=== PATIENT | female | born 1980 | race Caucasian/White ===

== ENCOUNTER 2016-05-28 18:06 | Observation (INO) ==
[2016-05-28 18:33] LABS: Bilirubin,Urine Negative (Negative); Blood,Urine Moderate (Negative); Clarity,Urine Clear (Clear); Color,Urine Yellow (Yellow); Glucose,Urine (UA) Normal (Normal); Ketones,Urine Negative (Negative); Leukocyte Esterase,Urine Negative (Negative); Nitrite,Urine Negative (Negative); Protein,Urine Negative (Neg-Trace); Specific Gravity,Urine 1.026 (1.010-1.025); Urobilinogen,Urine Normal (Normal)
[2016-05-28 18:35] LABS: Bacteria,Urine None Seen per hpf (None-Few); Hyaline Casts,Urine None Seen per lpf (None-Few); RBC,Urine 15-30 per hpf (0-3); Squamous Epithelial Cell,Urine Many per lpf (None-Few); WBC,Urine 0-3 per hpf (0-3)
--- NOTE | 2016-05-28 18:41 | OB/GYN Progress Note ---
Date of Encounter: 05/28/16 Time of Encounter: 18:36 - Assessment and Plan (1) 21 weeks gestation of Current Visit: Yes Status: Acute admit for observation (2) AMA (advanced maternal age) multigravida 35+ Current Visit: Yes Status: Acute admit for observation Qualifiers: Trimester: second trimester Qualified Code(s): O09.522 - Supervision of elderly multigravida, second trimester (3) Vaginal discharge during in second trimester Current Visit: Yes Status: Acute vaginosis panel collected and sent to lab. Subjective - Subjective Principal diagnosis: Vaginal bleeding Interval history: Patient is 35 y/o female at 21w4d presents to labor and delivery with complaints of brown discharge followed by bright red spotting on toilet tissue after voiding about 1 hour ago. Patient denies any bleeding since. Patient has history of 40w and 42 week deliveries. Patient had a normal level II ultrasound WNL on 05/20/2016. Patient reports increase in urinary frequency, denies dysuria. Denies any vaginal itching and burning. Patient reports +FM. Blood type : A+. Antepartum ROS: vaginal bleeding, movement normal, no loss of fluid, no contractions Objective - Exam FHR: auscultation normal FHR comments: FHR 155 bpm appropriate for gestational age. Abdomen: Present: normal appearance, soft, gravid Uterus: Present: normal Cervical dilation: Closed Cervix effacement: Thick station: -3 Comments: Speculum exam: No blood noted in vagina or at cervical os. Moderate amount of white discharge noted on exam vaginosis panel collected and sent to lab. SVE: Closed/Thick and posterior. - Labs Labs: Abnormal lab results Ur Specific [place] 1.026 (1.010-1.025) H 05/28/16 18:25 Urine Blood Moderate (Negative) H 05/28/16 18:25 Urine Microscopic RBC 15-30 per hpf (0-3) H 05/28/16 18:25 Ur Squamous Epith Cells Many per lpf (None-Few) H 05/28/16 18:25
[2016-05-28 20:12] LABS: Candida DNA Not Detected (Not Detect); Gardnerella DNA Not Detected (Not Detect); Trichomonas DNA Not Detected (Not Detect)
--- NOTE | 2016-06-01 08:03 | Discharge Summary ---
Date of Encounter: 05/28/16 Time of Encounter: 20:14 - Discharge Diagnosis (1) 21 weeks gestation of Priority: Primary Status: Acute Comments: False labor (2) AMA (advanced maternal age) multigravida 35+ Priority: Secondary Status: Acute Qualifiers: Trimester: second trimester Qualified Code(s): O09.522 - Supervision of elderly multigravida, second trimester (3) Vaginal discharge during in second trimester Priority: Secondary Status: Acute - Discharge Medications Home Medications: Buspar 10 mg PO DAILY 05/28/16 [History] Colace 100 mg PO TID 05/28/16 [History] Hydroxyzine HCl 25 mg PO 2-3XD PRN 05/28/16 [History] 19 Tablet 1 tab PO DAILY 05/28/16 [History] Allergies/Adverse Reactions: Allergies No Known Allergies Allergy (Verified 11/06/15 19:10) Data Procedures and tests throughout hospitalization: Laboratory Tests 05/28/16 05/28/16 18:25 Unknown Urine Color Yellow Urine Clarity Clear Urine pH 6.0 Ur Specific [place] 1.026 H Urine Protein Negative Urine Glucose (UA) Normal Urine Ketones Negative Urine Blood Moderate H Urine Nitrite Negative Urine Bilirubin Negative Urine Urobilinogen Normal Ur Leukocyte Esterase Negative Urine Microscopic RBC 15-30 H Urine Microscopic WBC 0-3 Ur Squamous Epith Cells Many H Urine Bacteria None Seen Hyaline Casts None Seen Ur Culture Indicated? NO Amy species DNA Not Detected Gardnerella DNA Probe Not Detected Trichomonas DNA Probe Not Detected Date of admission: 05/28/16 18:06 Primary care physician: PCP NO Discharging clinician: Farida Fritz Anticipated date of discharge: 05/28/16 - Patient Status Disposition: Home, Self-Care Condition: Good - Discharge Instructions Follow Up With: NO,PCP [Primary Care Provider] - Additional Instructions: LABOR AND DELIVERY DISCHARGE INSTRUCTIONS Signs and Symptoms to be Reported to your Doctor Immediately: * Sudden gush, continuous or intermittent lead of fluid from vagina (note the time of gush and color of fluid) * Onset of bright red vaginal bleeding with or without pain (if you had a vaginal exam during this visit you may notice some dark red spotting. This is normal.) * Lower abdominal cramping or backache that is premenstrual-like feeling. * More than 6 contractions in one hour. * Burning during urination, having to urinate more frequently or pain in your mid-back. * A change in the baby's activity. This could be an increase or decrease in activity. * Severe headache which does not go away with tylenol. * Sudden swelling in the face, hands, arms and/or legs. * Upper abdominal pain - sometimes associated with heartburn or nausea and is not relieved by Maalox, Mylanta or Tums. * Dizziness or blurred vision or visual disturbances (seeing stars/lights). * Kick Counts One hour after a meal, lay down on one side in a quiet place. Count the number of tara the baby moves during an hour. If less than 6 movements, notify your physician. Diet: *Force fluids - 8-10 tall glasses of fluid per day. May include popsicles and jello. 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
== END 2016-05-28 20:25 | disposition home or self-care (01) ==
LOC: 1NENULAB
PROVIDERS: ADMIT Advanced Practice Midwife

== ENCOUNTER → 2016-06-27 22:40 | Observation (INO) ==
--- NOTE | 2016-06-27 22:18 | OB/GYN Progress Note ---
Date of Encounter: 06/27/16 Time of Encounter: 22:16 - Assessment and Plan (1) 25 weeks gestation of Current Visit: Yes Status: Acute (2) AMA (advanced maternal age) multigravida 35+ Current Visit: No Status: Chronic Qualifiers: Trimester: second trimester Qualified Code(s): O09.522 - Supervision of elderly multigravida, second trimester (3) Vaginal discharge during in second trimester Current Visit: Yes Status: Acute Not ruptured. All testing negative and vagina is dry. Patient reassured that her amniotic fluid is not leaking. She has had no further leaking since arrival. Followup as scheduled. Subjective - Subjective Principal diagnosis: leaking fluid Interval history: Patient states an hour before arrival she felt a gush of fluid. She changed her clothes and she was wet yet again. She is confident it is not urine leaking. She denies any contractions or vaginal bleeding. She reports good movements. She has a history of 2 prior term deliveries. Antepartum ROS: loss of fluid, movement normal, no vaginal bleeding, no contractions Objective - Vital Signs Vital Signs: Intake and Output 06/27/16 06/27/16 06/27/16 07:59 15:59 23:59 Other: Weight 82.5 kg Patient Weight 06/27/16 23:59 Weight 82.5 kg - Exam FHR: auscultation normal Abdomen: Present: soft, gravid. Absent: tenderness Comments: Speculum exam, vaginal dryness noted, negative pooling, negative nitrazine, negative ferning.
== END | disposition home or self-care (01) ==
LOC: 1NENULAB
PROVIDERS: ADMIT Obstetrics & Gynecology; ATTEND Obstetrics & Gynecology

== ENCOUNTER 2016-09-27 06:00 | Inpatient (IN) ==
[2016-09-27] MEDS ORDERED: Naloxone 0.4 MG/ML INJ IVP PRN ×2 (06:04→12:10)
[2016-09-27] MEDS ORDERED: Metoclopramide 10 MG/2 ML VIAL IVP PRN (06:04)
[2016-09-27] MEDS ORDERED: Famotidine 20 MG/2 ML VIAL IVP PRN (06:04)
[2016-09-27] MEDS ORDERED: miSOPROStol 100 MCG TABLET PO PRN (06:04)
[2016-09-27 06:25] LABS: Basophils # 0.1 K/mcL (0.0-0.2); Basophils % 0.3 %; Eosinophils # 0.2 K/mcL (0.0-0.6); Eosinophils % 1.3 %; Hematocrit 34.3 % (35.3-44.9); Hemoglobin 11.8 g/dL (11.5-15.4); Immature Granulocytes % 0.5 % (0-4); Lymphocytes # 2.7 K/mcL (0.6-4.6); Lymphocytes % 18.8 %; Mean Corpuscular HGB Conc 34.4 g/dL (31.6-35.5); Mean Corpuscular Hemoglobin 31.1 pg (28.0-33.3); Mean Corpuscular Volume 90.3 fL (83.0-100.0); Mean Platelet Volume 9.3 fL (9.4-12.4); Monocytes # 0.7 K/mcL (0.0-1.3); Monocytes % 4.8 %; Neutrophils # 10.8 K/mcL (1.6-8.9); Platelet Count 366 K/mcL (140-400); Red Cell Distribution Width 13.2 % (11.5-14.5); Segmented Neutrophils % 74.3 %
[2016-09-27] MEDS: Ringers Solution, Lactated 1,000 ML IVC SCH ×4 (07:56→18:57)
--- NOTE | 2016-09-27 11:02 | Anesthesia Evaluation PreOp ---
Date of Encounter: 09/27/16 Time of Encounter: 10:56 - Past History Planned Operation: MILLER Cardiac History: Denies any Significant Hx Pulmonary History: Former smoker (quit with ), Smoker (17pk/yr) STILL RUNNER History: Denies Any Significant HX Other Medical History: Denies Any Significant HX, Other ( anxiety, iron deficiency anemia) Anesthesia History: No Prior Anesthetic Complications, Past Anesthesia (cyst removal from left wrist, Tonsillectomy without complication) : Yes Alcohol Use: none Drug use: none Medications and Allergies Buspar 10 mg PO DAILY 05/28/16 [History] Colace 100 mg PO TID 05/28/16 [History] 19 Tablet 1 tab PO DAILY 05/28/16 [History] hydrOXYzine HCl [Hydroxyzine HCl] 25 mg PO 2-3XD PRN 05/28/16 [History] Ferrous Sulfate [Iron] 325 mg PO DAILY 09/27/16 [History] Allergies No Known Allergies Allergy (Verified 11/06/15 19:10) - Meds/Allergy Pre-op Review Medications Reviewed: Yes Allergies Reviewed: Yes Beta Blockers on Current Med List: No Anesthesia Results - Labs 09/27/16 06:19 Anesthesia Exam BP 120/59 P 86 R 16 T 98.0 Height: 5'6" Weight: 85kg NPO (# of Hours): 2 Pain Scale: 4 Pain Scale Used: Numeric (1 - 10) - HEENT Pupil (Motor): Pupils equal Mallampati: II Teeth: Normal Oral Opening: Less than or equal to 3 - STILL RUNNER LOC: Oriented STILL RUNNER Motor: Normal RUE, Normal LUE, Normal RLE, Normal LLE, Normal Face STILL RUNNER Sensory: Normal: RUE, LUE, RLE, LLE, Face - Cardiac Murmur: None JVD: No Carotid Bruit: No - Pulmonary Breath Sounds: bilateral Clear Respiratory Effort: Symmetrical Anesthesia Assess/Plan ASA Score: 2 Modified Kenneth Scale for Level of Consciousness: Cooperative, oriented, and tranquil Anesthetic Plan: Regional Autologous Blood: No Monitoring Plan: Standard Monitors Recovery Plan: Other
--- NOTE | 2016-09-27 11:37 | OB Labor Progress Note ---
Date of Encounter: 09/27/16 Time of Encounter: 11:35 Labor Progress Note - Subjective Subjective: Pt comfortable s/p 25mcg Cytotec with irregular uc's'. - Cervix Cervix: 3/80/-2 - Heart Tones Heart Tones: RNST - Genoa Genoa: Irregular uc's - Interventions Interventions: AROM clear - Plan Plan: Expect
[2016-09-27] MEDS ORDERED: *HR* Nalbuphine 20 MG/ML AMPUL IVP PRN (11:49)
[2016-09-27] MEDS ORDERED: Oxytocin 20 units/ LR 1000 mL 20 UNIT/1,000 ML BAG IVC SCH ×2 (12:00→22:38)
[2016-09-27] MEDS ORDERED: EPHEDrine 50 MG/ML VIAL IVP PRN (12:10)
[2016-09-27] MEDS ORDERED: Ondansetron 4 MG/2 ML VIAL IVP PRN (12:10)
[2016-09-27] MEDS ORDERED: *HR* FentaNYL (PF) 100 MCG/2 ML VIAL EP ONE (12:10)
[2016-09-27] MEDS ORDERED: Bupivacaine-MPF 0.25% 10 ML VIAL EP ONE (12:10)
[2016-09-27] MEDS ORDERED: Epidural Premix (fent/bupiv) 110 ML EP SCH (12:15)
[2016-09-27] MEDS ORDERED: *HR* FentaNYL (PF) 100 MCG/2 ML VIAL ONE (13:45)
[2016-09-27] MEDS ORDERED: Bupivacaine-MPF 0.25% 10 ML VIAL ONE (13:47)
[2016-09-27] MEDS ORDERED: Epidural Premix (fent/bupiv) 110 ML EP ONE (13:47)
--- NOTE | 2016-09-27 14:15 | OB Labor Progress Note ---
Date of Encounter: 09/27/16 Time of Encounter: 14:13 Labor Progress Note - Subjective Subjective: Uc's getting more uncomfortable with uc's on pit. - Cervix Cervix: /-1 - Heart Tones Heart Tones: RNST - Plan Plan: Expect
--- NOTE | 2016-09-27 14:39 | OB/GYN History & Physical ---
Date of Encounter: 09/27/16 Time of Encounter: 14:35 Assessment and Plan (1) 39 weeks gestation of Current visit: Yes Status: Acute Pt with intractable back pain, presents with desire for induction of labor. Will start Cytotec. (2) AMA (advanced maternal age) multigravida 35+ Current visit: No Status: Chronic Qualifiers: Trimester: third trimester Qualified Code(s): O09.523 - Supervision of elderly multigravida, third trimester History of Present Illness Chief complaint: Here for induction of labo HPI: Ms. Lewis is a 35 year old female female presen at 39 weeks EGA for induction of labor. Preg has been complicated by AMA with normal level u/s and growth scans. She has also had intractable back pain during this . Past Med Surg Social Fam HX - Past Medical History Medical history: other Psychiatric history: anxiety - Past Surgical History Surgical History: other - Social History Smoking Status: Former smoker Smokeless Tobacco Status: No Alcohol use: none Drug use: none - Family History Father Living Status: Hx Family Cardiac Disorders: Yes (htn) Hx Family Respiratory Disorders: No Hx Family Cancer: Yes Hx Family GI Disorders: No Hx Family Endocrine Disorder: Yes Hx Family Neuromuscular Disorders: No Hx Family Neurologic Disorders: No Hx Family HEENT Disorders: No Hx Family Autoimmune Disorders: No Obstetrical History - Pregnancies : 3 Para: 2 Medications and Allergies Buspar 10 mg PO DAILY 05/28/16 [History] Colace 100 mg PO TID 05/28/16 [History] 19 Tablet 1 tab PO DAILY 05/28/16 [History] hydrOXYzine HCl [Hydroxyzine HCl] 25 mg PO 2-3XD PRN 05/28/16 [History] Ferrous Sulfate [Iron] 325 mg PO DAILY 09/27/16 [History] Allergies No Known Allergies Allergy (Verified 11/06/15 19:10) Exam - Constitutional Constitutional: well developed, well nourished, no acute distress - HEENT HEENT: EOMI, PERRL - Neck Neck exam: full ROM - Lungs Respiratory exam: CTAB - Cardiovascular Cardiovascular exam: RRR - Breasts Breast: bilateral: normal - Abdomen Abdomen: Present: bowel sounds normal, gravid - Cervix Dilation: 3 Effacement: 70 Station: -2 Results Result Diagrams: 09/27/16 06:19 Abnormal lab results WBC 14.6 K/mcL (4.3-11.1) H 09/27/16 06:19 RBC 3.80 M/mcL (3.82-4.97) L 09/27/16 06:19 Hct 34.3 % (35.3-44.9) L 09/27/16 06:19 MPV 9.3 fL (9.4-12.4) L 09/27/16 06:19 Neutrophils # 10.8 K/mcL (1.6-8.9) H 09/27/16 06:19 All other labs normal. - VTE Reasons for not Prescribing Prophylaxis: Treatment not Indicated - Low risk for VTE
--- NOTE | 2016-09-27 17:27 | Anesthesia Procedures ---
Date of Encounter: 09/27/16 Time of Encounter: 16:30 Procedures: Anesthesia - Epidural/Spinal Patient ID/Chart reviewed: Yes Patient examined: Yes OB Eval: Gestational age: 39 OB Eval: : 3 OB Eval: Hx Para: 2 OB Eval: Dilated at (cm): 4 OB Eval: Contractions: Non-stressed pattern Consent Obtained: Yes Supplemental Oxygen: None/Room Air Site Prep: Aseptic Technique, Sterile prep and drape, Povidone-Iodine 1% Patient position: upright Local Anesthetic: Lidocaine 1% Amount of Local Anesthetic used: 3 Touhy Needle Gauge: 18 Touhy Needle Depth (cm): 6 Catheter Depth at Skin (cm): 14 Test Dose (1.5% Lido + Epi): Volume given (mls): 3 Test Dose Result: Negative Loading Dose: 0.25% Marcaine (mls): 10 Loading Dose: Fentanyl (mcg): 100 Loading Dose Administered: Thru Catheter Infusion Med: 0.125% Bupivacaine w/ 2 mcg/ml Fentanyl Infusion Rate (mls/hr): [address]: Tegaderm, Tape Interspace Used: L4-L5 Loss of Resistance (STEPHANI): Yes Blood: No CSF: No Paresthesia: No Procedure: MILLER placed 1st pass without any immediate noted complications. VSS throughout Vitals + FHT's: 1630 BP 98/55 P 69 1705 BP 106/56 P 77 FHT 130s
--- NOTE | 2016-09-27 20:12 | OB/GYN Procedure Note ---
Delivery - Delivery Date: 09/27/16 Provider: Buster Stevenson Intrapartum events: none Delivery induction: AROM, oxytocin Anesthesia: epidural Estimated Blood Loss: 100 - (s) A Delivery Date: 09/27/16 Delivery Time: 19:44 Presentation: vertex Position: AUBREY Gender: Male Viability: Viable Weight Gram: 2.8 kg at 1 minute: 8 at 5 mins: 9 Shoulder Dystocia: not encountered Specimens collected: cord blood Placenta: spontaneous Cord: 3 umbilical vessels - Repair Episiotomy: none Laceration Description: Superficial - Complications Delivery complications: none - Disposition Mom disposition: stable in LDR disposition: stable in LDR - Comments Comments: Pt s/p of liveborn male without complications. No significant lacerations. Spontaneous delivery of normal placenta with 3vc. Mother and infant recovered in LDR.
[2016-09-27] MEDS ORDERED: Acetaminophen 325 MG TABLET PO PRN (22:38)
[2016-09-27] MEDS ORDERED: Measles/Mumps/Rubella Vacc 0.5 ML VIAL SQ PRN (22:38)
[2016-09-27] MEDS ORDERED: Rho Immune Globulin 1,500 UNIT SYRINGE IM PRN (22:38)
[2016-09-27] MEDS: Ibuprofen 600 MG TABLET PO PRN (23:32)
[2016-09-28 08:53] LABS: Basophils # 0.1 K/mcL (0.0-0.2); Basophils % 0.3 %; Eosinophils # 0.2 K/mcL (0.0-0.6); Hematocrit 31.1 % (35.3-44.9); Hemoglobin 10.5 g/dL (11.5-15.4); Immature Granulocytes % 0.5 % (0-4); Immature Platelets 2.2 % (1.1-6.1); Lymphocytes # 2.5 K/mcL (0.6-4.6); Lymphocytes % 15.8 %; Mean Corpuscular HGB Conc 33.8 g/dL (31.6-35.5); Mean Corpuscular Volume 91.7 fL (83.0-100.0); Mean Platelet Volume 9.3 fL (9.4-12.4); Monocytes # 0.6 K/mcL (0.0-1.3); Monocytes % 4.1 %; Neutrophils # 12.2 K/mcL (1.6-8.9); Platelet Count 360 K/mcL (140-400); Red Blood Count 3.39 M/mcL (3.82-4.97); Red Cell Distribution Width 13.5 % (11.5-14.5); Segmented Neutrophils % 78.3 %
[2016-09-28] MEDS ORDERED: Prenatal Vit/FA 1 EACH TABLET PO SCH (09:00)
[2016-09-28] MEDS: Ibuprofen 600 MG TABLET PO PRN ×2 (09:05→16:37)
--- NOTE | 2016-09-28 09:48 | OB/GYN Progress Note ---
Date of Encounter: 09/28/16 Time of Encounter: 09:46 - Assessment and Plan (1) Vaginal delivery Current Visit: Yes Status: Acute stable PPD #1. Recommend ATC Motrin for back pain. Will DC in AM, may DC tonight if desires. Subjective - Subjective Interval history: Pt states bleeding has decreased, voiding, has some back pain taking po medication, Pt does not desire late discharge at this time. Patient reports: appetite normal, voiding normally, pain well controlled, ambulating normally, other (heartburn) : doing well Objective - Latest Vital Signs Latest vital signs: Vital Signs Temp Pulse Resp BP Pulse Ox 09/28/16 00:30 98.2 F 71 16 102/55 97 09/27/16 23:30 98.2 F 75 16 105/65 99 09/27/16 22:30 98.2 F 79 16 105/61 98 Intake and Output 09/27/16 09/28/16 09/28/16 23:59 07:59 15:59 Intake Total 2000 / 2000 Output Total 1300 / 1300 Balance 700 / 700 Intake: IV Fluids 1999 / 1999 Lactated Ringers 1,000 ML 2000 / 2000 @ 125 mls/hr IVC .Q8H EVAN Rx#:[id number] Output: Urine 1300 / 1300 Other: Weight 84.731 kg Patient Weight 09/28/16 23:59 Weight 84.731 kg - Exam Lungs: bilateral: normal Chest: Normal S1, Normal S2 Extremities: Present: normal Abdomen: Present: normal appearance, soft, gravid Uterus: Present: firm Uterus Position: At Umbilicus - Labs Labs: Laboratory Results - last 24 hr 09/28/16 09/28/16 05:46 08:45 WBC 15.6 H RBC 3.39 L Hgb 10.5 L Hct 31.1 L MCV 91.7 MCH 31.0 MCHC 33.8 RDW 13.5 Plt Count 360 MPV 9.3 L Immature Gran % 0.5 Seg Neutrophils % 78.3 Lymphocytes % 15.8 Monocytes % 4.1 Eosinophils % 1.0 Basophils % 0.3 Neutrophils # 12.2 H Lymphocytes # 2.5 Monocytes # 0.6 Eosinophils # 0.2 Basophils # 0.1 Immature Plt Fraction 2.2 Specimen Rejected Labelling
[2016-09-28 15:32] VITALS: BP 106/69
--- NOTE | 2016-09-28 18:31 | Discharge Summary ---
Date of Encounter: 09/28/16 Time of Encounter: 18:28 - Discharge Diagnosis (1) Vaginal delivery Priority: Primary Status: Acute Comments: pt meeting all milestones, assessment unchanged, desires discharge - Discharge Medications Prescriptions: Ibuprofen [Motrin] 600 mg PO Q6HR PRN #60 tab PRN Reason: Pain Docusate [Colace] 100 mg PO BID #60 Ferrous Sulfate 325 mg PO DAILY #60 tab Home Medications: Buspar 10 mg PO DAILY 05/28/16 [History] Colace 100 mg PO TID 05/28/16 [History] 19 Tablet 1 tab PO DAILY 05/28/16 [History] hydrOXYzine HCl [Hydroxyzine HCl] 25 mg PO 2-3XD PRN 05/28/16 [History] Ferrous Sulfate [Iron] 325 mg PO DAILY 09/27/16 [History] Acetaminophen [Tylenol] 650 mg PO Q6HR PRN tab 09/28/16 [Rx] Buspirone HCl [Buspar] 10 mg PO DAILY tab 09/28/16 [Rx] Docusate [Colace] 100 mg PO BID #60 09/28/16 [Rx] Ferrous Sulfate 325 mg PO DAILY #60 tab 09/28/16 [Rx] Ibuprofen [Motrin] 600 mg PO Q6HR PRN #60 tab 09/28/16 [Rx] Allergies/Adverse Reactions: Allergies No Known Allergies Allergy (Verified 11/06/15 19:10) Data Procedures and tests throughout hospitalization: Laboratory Tests 09/27/16 09/28/16 09/28/16 06:19 05:46 08:45 WBC 14.6 H 15.6 H RBC 3.80 L 3.39 L Hgb 11.8 10.5 L Hct 34.3 L 31.1 L MCV 90.3 91.7 MCH 31.1 31.0 MCHC 34.4 33.8 RDW 13.2 13.5 Plt Count 366 360 MPV 9.3 L 9.3 L Immature Gran % 0.5 0.5 Seg Neutrophils % 74.3 78.3 Lymphocytes % 18.8 15.8 Monocytes % 4.8 4.1 Eosinophils % 1.3 1.0 Basophils % 0.3 0.3 Neutrophils # 10.8 H 12.2 H Lymphocytes # 2.7 2.5 Monocytes # 0.7 0.6 Eosinophils # 0.2 0.2 Basophils # 0.1 0.1 Immature Plt Fraction 2.2 Specimen Rejected Labelling Labs on day of discharge: Labs from last 24 hours 09/28/16 09/28/16 08:45 05:46 WBC 15.6 H RBC 3.39 L Hgb 10.5 L Hct 31.1 L MCV 91.7 MCH 31.0 MCHC 33.8 RDW 13.5 Plt Count 360 MPV 9.3 L Immature Gran % 0.5 Seg Neutrophils % 78.3 Lymphocytes % 15.8 Monocytes % 4.1 Eosinophils % 1.0 Basophils % 0.3 Neutrophils # 12.2 H Lymphocytes # 2.5 Monocytes # 0.6 Eosinophils # 0.2 Basophils # 0.1 Immature Plt Fraction 2.2 Specimen Rejected Labelling Date of admission: 09/27/16 06:02 Primary care physician: TASHI LOTT Consults: 09/27/16 22:38 Consult to [employer] Crewmember [CONS] Routine Comment: Vaginal delivery, consult needed Discharging clinician: Madina Smith Anticipated date of discharge: 09/28/16 - Patient Status Disposition: Home, Self-Care Condition: Good Functional capacity at discharge: independent ambulation Overall status at discharge: patient is back to baseline - Discharge Instructions Follow Up With: NONE,PCP [Primary Care Provider] - Buster Stevenson MD [Partnered Physician] - - Diet and Activity Activity: resume usual activities as tolerated Diet: regular diet Hospital Course Reason for admission: IUP at term Delivery: Episiotomy: none Laceration: none Other procedures: none complications: none Discharge diagnosis: IUP at term delivered [place] baby: male Hospital course: Delivery - Delivery Date: 09/27/16 Provider: Buster Stevenson Intrapartum events: none Delivery induction: AROM, oxytocin Anesthesia: epidural Estimated Blood Loss: 100 - Infant (s) A Delivery Date: 09/27/16 Infant Delivery Time: 19:44 Presentation: vertex Position: AUBREY Gender: Male Viability: Viable Weight Gram: 2.8 kg at 1 minute: 8 at 5 mins: 9 Shoulder Dystocia: not encountered Specimens collected: cord blood Placenta: spontaneous Cord: 3 umbilical vessels - Repair Episiotomy: none Laceration Description: Superficial - Complications Delivery complications: none - Disposition Mom disposition: stable in LDR disposition: stable in LDR Time Attestation: Total time spent providing and/or coordinating discharge services: Time Spent: Less than 30 minutes Exam - Constitutional Vitals: Temp Pulse Resp BP Pulse Ox 97.9 F 77 16 106/69 97 09/28/16 15:22 09/28/16 15:22 09/28/16 15:22 09/28/16 15:22 09/28/16 00:30 General appearance IM: A&O X 3 - Respiratory Respiratory exam: Present: CTAB - Cardiovascular Cardiovascular exam IM: Present: RRR - GI/Abdominal GI/Abdominal exam IM: soft - Extremities Exam Extremities exam IM: Present: normal inspection - Neurological Exam Neurological exam: normal gait, oriented X3
== END 2016-09-28 20:50 | disposition home or self-care (01) | DRG 560 ==
LOC: 1NENULAB 06:02 → 1NENUOBS 22:39
PROVIDERS: ADMIT Obstetrics & Gynecology; ATTEND Obstetrics & Gynecology